=== PATIENT | male | born 1975 | race Caucasian/White ===

== ENCOUNTER 2016-11-13 03:06 | Emergency (ER) | payer BC, OTHER ==
[~2016-11-13] VITALS: Ht 182.9 cm; Wt 77.1 kg
[~2016-11-13 03:06] MED LIST: AMBIEN 10 MG TA10 MG PO; BP MED; LEVOFLOXACIN750 MG PO; LEXAPRO 10 MG T10 MG PO; LEXAPRO20 MG PO; LUNESTA3 MG PO; NOHOMEMEDICATIONS; NORCO 5-325 TA1 EACH PO; PROVENTIL HFA6.7 G1 INH; TESSALON PERLE100 MG PO; ZPAK PO
[2016-11-13] MEDS ORDERED: MIGRAINE MED (03:19)
[2016-11-13] MEDS ORDERED: KEFLEX500 MG PO (03:20)
[2016-11-13] MEDS ORDERED: NORCO 5-325 TA1 EACH PO ×2 (03:20→03:49)
[2016-11-13] MEDS ORDERED: BACTRIM DS TAB1 EACH PO (03:20)
[2016-11-13 04:01] VITALS: BP 181/104
== END 2016-11-13 04:03 | disposition home or self-care (01) ==
LOC: ER 03:06
DX: L03.211 Cellulitis of face (principal); F32.9 Major depressive disorder, single episode, unspecified; F17.200 Nicotine dependence, unspecified, uncomplicated; Z88.6 Allergy status to analgesic agent

== ENCOUNTER → 2020-05-12 | Emergency (ER) | payer OTHER ==
[~2020-05-12] VITALS: Ht 182.9 cm; Wt 83.9 kg
[~2020-05-12] MED LIST changes: +BACTRIM DS TAB1 EACH PO; +KEFLEX500 MG PO; +MIGRAINE MED
[2020-05-12 21:13] VITALS: BP 150/92
--- NOTE | 2020-05-13 07:09 | EKG ---
[facility] [place] [address] ELECTROCARDIOGRAM REPORT Name: PEPEANNETTE Room #: REG [facility]#: [id number] Admission: 05/12/20 Attend Phys: Discharge: Date of : 71 Report #: [id number] THIS REPORT FOR: cc: [facility] - Clinic physician unknown [facility] - Clinic physician unknown Davon Munoz MD [facility] ~ THIS REPORT FOR: //name// [facility] ED Test Date: 2020-05-12 Test Time: 22:06:00 Pat Name: ANNETTE CANTU Department: Room: Gender: M Crane Operator Cab: renetta : 1975 Requested By: Garfield Kirkpatrick Order Number: [id number] MD: Davon Munoz Measurements Intervals [place] Rate: 112 P: 31 TX: 153 QRS: 53 QRSD: 109 T: 93 QT: 342 QTc: 467 Interpretive Statements Sinus tachycardia Left atrial enlargement LVH with secondary repolarization abnormality Baseline wander in lead(s) V3 Compared to ECG 09/06/2011 19:58:14 Atrial abnormality now present Left ventricular hypertrophy now present Early repolarization now present Sinus bradycardia no longer present Electronically Signed On 05-13-2020 7:09:49 [employer]IOR [employer]ALITY [employer]NAGER by Davon Munoz [email or web address] <ELECTRONICALLY SIGNED> By: Davon Munoz MD, FACC 05/13/20708 05 05 Davon Munoz MD, [facility] /EPI
== END ==
LOC: ER 21:09
DX: R06.00 Dyspnea, unspecified (principal); R05 Cough; I25.2 Old myocardial infarction; I50.9 Heart failure, unspecified; F32.9 Major depressive disorder, single episode, unspecified; J44.9 Chronic obstructive pulmonary disease, unspecified; Z79.899 Other long term (current) drug therapy; Z88.6 Allergy status to analgesic agent